=== PATIENT | female | born 1965 | race Caucasian/White ===

== ENCOUNTER → 2017-07-25 | Outpatient (CLI) | payer BC ==
--- NOTE | 2017-07-25 16:27 | RAD ---
Examination: 3 views of the left knee History: History of filling of the left knee since Tuesday Comparison: None available Findings: The alignment of the left knee joint grossly appears unremarkable. There is no acute fracture or dislocation identified. Small knee joint effusion identified. There is mild joint space loss identified in the medial compartment. Impression: 1. Mild degenerative changes knee joint particularly in the medial compartment. 2. Small knee joint effusion.
== END | disposition home or self-care (01) ==
LOC: PMG 15:59
PROVIDERS: ATTEND General Practice
DX: M17.12 Unilateral primary osteoarthritis, left knee (principal); M25.462 Effusion, left knee
CPT/HCPCS: 73562

== ENCOUNTER → 2020-01-28 | Outpatient (CLI) | payer BC ==
--- NOTE | 2020-01-28 17:58 | RAD ---
DATE: 01/28/2020 2:12 PM EXAM: HERIBERTO WILLIAM, BREAST LEFT HISTORY: 54-year-old woman presents for imaging evaluation of the palpable nodule in the periareolar left breast noted on clinical exam by her referring clinician. Patient reports this area was initially tender and then eventually developed a nodule that is now relatively painless. COMPARISON: None. This is a baseline. TECHNIQUE: Bilateral CC and MLO views of the breasts were performed. Bilateral breast tomosynthesis was performed in CC and MLO projections. Bilateral X CCL views were also obtained. This study was interpreted with the benefit of Computerized Aided Detection (CAD). Targeted ultrasound of the area of palpable concern was also performed in the left breast. FINDINGS: Breast Density: DENSE The breast Parenchyma is dense, which could reduce the sensitivity of mammography. Breast parenchyma level density D. Extensive bilateral calcifications are present, predominantly round and coarse, but with additional with diffusely scattered punctate calcifications bilaterally. The right mammogram is otherwise negative. The left mammogram shows more of the finer, punctate round calcifications, especially medially but they are not in a ductal distribution. There is no definite mammographic correlate to the area of reported palpable concern as marked with a BB marker at the skin surface although a lucent centered nodule in the lateral periareolar left breast is questioned in this area. Targeted ultrasound of the left breast in the area of palpable concern identifies a superficial oval parallel orientation 1 cm nodule with central hypoechoic circumscribed cystic component with no internal vascularity. IMPRESSION: Probably benign noncalcified fat necrosis in the superficial left breast or inflamed sebaceous cyst. No findings suspicious on mammography or ultrasound for malignancy. Recommend six-month follow-up left diagnostic mammogram to include magnification views of the medial left breast calcifications, and spot compression view over the area of reported palpable concern, in addition to targeted ultrasound of the left periareolar breast. BI-RADS CATEGORY: 3 PROBABLY BENIGN FINDING(S)-SHORT INTERVAL FOLLOW-UP SUGGESTED RECOMMENDED FOLLOW-UP: 6M 6 MONTH FOLLOW-UP Follow-up mammography and targeted left breast ultrasound recommended in 6 months as described. Patient notified by technologist prior to discharge from the imaging suite. PQRS compliance statement: Patient information was entered into a reminder system with a target due date for the next mammogram. Mammography is a sensitive method for finding small breast cancers, but it does not detect them all and is not a substitute for careful clinical examination. A negative mammogram does not negate a clinically suspicious finding and should not result in delay in biopsying a clinically suspicious abnormality. "Our facility is accredited by the [employer] Mammography Program."
== END | disposition home or self-care (01) ==
LOC: MAMMO 13:55
PROVIDERS: ATTEND Physician Assistant Medical
DX: R92.1 Mammographic calcification found on diagnostic imaging of breast (principal); N63.20 Unspecified lump in the left breast, unspecified quadrant
CPT/HCPCS: 76641; 77066; G0279; 77062